=== PATIENT | female | born 1985 | race American Indian/Alaskan Native ===

== ENCOUNTER 2022-03-25 19:17 | Emergency (ER) | payer MEDICAID ==
[2022-03-25 20:33] VITALS: BP 123/67
--- NOTE | 2022-03-25 21:25 | XRay Report ---
RIGHT ANKLE 3 VIEW(S) INDICATION / CLINICAL INFORMATION: twisted ankle COMPARISON: None available. FINDINGS: BONES / JOINT(S): No acute fracture or subluxation. No significant arthritis. SOFT TISSUES: There is a dermal/subcutaneous calcification anterior to the mid tibia seen on the late ral view. ADDITIONAL FINDINGS: None. Signer Name: Ace Heck MD Signed: 03/25/2022 9:21 PM Workstation Name: [id number]
--- NOTE | 2022-03-25 22:29 | Emergency Department Report ---
ED Lower Extremity HPI - General Chief Complaint: Extremity Injury, Lower Stated Complaint: FOOT/RT ANKLE PAIN Time Seen by Provider: 03/25/22 22:12 Source: patient Mode of arrival: Ambulatory Limitations: No Limitations - History of Present Illness Initial Comments: 37-year-old female presents emerged part with complaining of right ankle pain for the last week after she jumped up and landed awkwardly rolling her ankle inversion type injury causing pain to the medial aspect of the ankle and little along the lateral region. Pain is dull and throbbing worse with palpation range of motion and and and ambulation. MD Complaint: ankle injury -: Sudden Injury: Ankle: Right Type of Injury: inversion Place: home Severity: mild, moderate Worsens With: weight bearing, movement, palpation Context: jumping - Related Data Home Medications Medication Instructions Recorded Confirmed Last Taken Vit-Fe Fumar-FA [ 1 tab PO QDAY 07/01/15 07/01/15 06/30/15 09:00 Vitamin] Previous Rx's Medication Instructions Recorded Last Taken Type HYDROcodone/APAP 10-325 [[place] 1 each PO Q6HR PRN #20 tablet 07/01/15 Unknown Rx 10/325] Ketorolac [Toradol] 10 mg PO Q6H PRN #14 03/25/22 Unknown Rx Allergies Allergy/AdvReac Type Severity Reaction Status Date / Time No Known Allergies Allergy Verified 03/25/22 20:33 ED Review of Systems ROS: Stated complaint: FOOT/RT ANKLE PAIN Other details as noted in HPI ED Past Medical Hx - Past Medical History Previous Medical History?: No - Surgical History Past Surgical History?: Yes Additional Surgical History: c. section X 2 - Social History Smoking Status: Never Smoker Substance Use Type: None - Medications Home Medications: Home Medications Medication Instructions Recorded Confirmed Last Taken Type HYDROcodone/APAP 10-325 [[place] 1 each PO Q6HR PRN #20 tablet 07/01/15 Unknown Rx 10/325] Vit-Fe Fumar-FA [ 1 tab PO QDAY 07/01/15 07/01/15 06/30/15 09:00 History Vitamin] Ketorolac [Toradol] 10 mg PO Q6H PRN #14 03/25/22 Unknown Rx ED Physical Exam - General Limitations: No Limitations ED Course Vital Signs 03/25/22 20:29 Temperature 98.0 F Pulse Rate 68 Respiratory 18 Rate Blood Pressure 123/67 [Left] O2 Sat by Pulse 98 Oximetry - Orthopedic Splinting/Casting Injury #1 Side: right Lower Extremity Injury Location: ankle Lower Extremity Immobilizer: stirrup splint Other Orthopedic Equipment: crutches ED Lower Extremity MDM - Radiology Data Radiology results: report reviewed [facility] [address] [place] [address] XRay Report Signed Patient: BOBBY ARCHER MR#: [id number] : 1985 Acct:[id number] Age/Sex: 37 / F ADM Date: 03/25/22 Loc: ED Attending Dr: Ordering Physician: LUCHO MCCARTY MD Date of Service: 03/25/22 Procedure(s): XR ankle 3+V RT Accession Number(s): [id number] cc: ED MD BIBIANA Fluoro Time In Minutes: RIGHT ANKLE 3 VIEW(S) INDICATION / CLINICAL INFORMATION: twisted ankle COMPARISON: None available. FINDINGS: BONES / JOINT(S): No acute fracture or subluxation. No significant arthritis. SOFT TISSUES: There is a dermal/subcutaneous calcification anterior to the mid tibia seen on the lateral view. ADDITIONAL FINDINGS: None. Signer Name: Ace Heck MD Signed: 03/25/2022 9:21 PM Workstation Name: [id number] Transcribed By: DB Dictated By: ACE HECK MD Electronically Authenticated By: ACE HECK MD Signed Date/Time: 03/25/222120 DD/ 19 TD/TT: Critical care attestation.: If time is entered above; I have spent that time in minutes in the direct care of this critically ill patient, excluding procedure time. ED Disposition Clinical Impression: Right ankle sprain Disposition: 01 HOME / SELF CARE / HOMELESS Is pt being admited?: No Does the pt Need Aspirin: No Condition: Stable Instructions: How to Use a Stirrup Ankle Brace, [id number], Ankle Sprain, Elastic Bandage and RICE Therapy, How to Use Cold Therapy, [id number], How to Use a Stirrup Ankle Brace Prescriptions: Ketorolac [Toradol] 10 mg PO Q6H PRN #14 PRN Reason: Pain Referrals: QUETA RUTLEDGE MD [Staff Physician] - 3-5 Days
== END 2022-03-25 23:40 | disposition home or self-care (01) ==
LOC: ED 19:17
DX: S93.401A Sprain of unspecified ligament of right ankle, initial encounter (principal); W16.712A Jumping or diving from boat striking water surface causing other injury, initial encounter; Y93.89 Activity, other specified; Y92.89 Other specified places as the place of occurrence of the external cause; Y99.8 Other external cause status
CPT/HCPCS: 99283